=== PATIENT | male | born 1985 | race Caucasian/White ===

== ENCOUNTER 2020-10-27 20:31 | Emergency (ER) | payer SELFPAY ==
[2020-10-27 21:05] VITALS: BP 107/59; PULSE 106
[2020-10-27] MEDS ORDERED: Dexamethasone 10 MG/ML SDV IM ONE (21:11)
[2020-10-27] MEDS ORDERED: Diazepam 2 MG Tab PO ONE (21:11)
--- NOTE | 2020-10-27 21:16 | EDM.PDOC ---
ED HPI GENERAL MEDICAL PROBLEM - General Chief Complaint: Back Pain or Injury Stated Complaint: PAIN IN LOWER LFT SIDE Time Seen by Provider: 10/27/20 20:59 - History of Present Illness INITIAL COMMENTS - FREE TEXT/NARRATIVE: History of present illness: The patient has back pain for a week. It gets worse when he has been standing and then tries to lay down or change position. It comes and goes. Ibuprofen helped a little bit with the pain. Flexeril helped a little bit with the spasm. The pain is in the left flank just above the posterior iliac crest and radiates down the left posterior thigh. He has no loss of bowel or bladder control or sensation in the buttocks or lower extremities. He has no loss of motor function. He has a little bit of loose stool incidentally. There is no rash. He has no nausea and vomiting or systemic signs of illness. He did not do anything to hurt himself and he enjoys excellent health. [] Review of systems: As per history of present illness and below otherwise all systems reviewed and negative. Past medical history: As per history of present illness and as reviewed below otherwise noncontributory. Surgical history: As per history of present illness and as reviewed below otherwise noncontributory. Social history: No reported history of drug or alcohol abuse. Family history: As per history of present illness and as reviewed below otherwise noncontributory. Physical exam: Constitutional - well developed, well-nourished and in no acute distress HEENT - normocephalic, no evidence of trauma - external nose and mouth normal - no mass in neck and no JVD - mucosae moist EYES - full EOM, PERRL, no icterus - no evidence of inflammation, injection, or drainage Respiratory - no respiratory distress, equal bilateral expansion, lungs clear to auscultation and no abnormal lung sounds Cardiovascular - Regular Rhythm with S1 and S2 appreciated and no murmur, gallop or rub. GI - abdomen soft without distension or organomegaly - normal bowel sounds - no guard or rebound Musculoskeletal straight leg raise on the left causes pain down the posterior thigh and buttocks. There is tenderness in the left sciatic area. The spine itself is without deformity tenderness or crepitance. No gross deformity of long bones or joints - no tenderness, swelling or edema Neurologic - Alert and oriented times four - CN II-XII grossly intact - motor sensory and coordination symmetrically normal-DTR right equal left with lower extremities Psychiatric - appropriate mood and affect with normal thought content Hematologic - No petechiae or purpura - mucosa appropriate color and sclera not pale - normal nail bed color and refill Integument - no rash or evidence of trauma - normal turgor Diagnostics: [] Therapeutics: [] Impression: [] Plan: [] Definitive disposition and diagnosis as appropriate pending reevaluation and review of above. Left Lower Back Pain Score (Numeric/FACES): 3 - Related Data Allergies Allergy/AdvReac Type Severity Reaction Status Date / Time No Known Allergies Allergy Verified 10/27/20 20:57 Home Meds: Home Meds Orphenadrine [Norflex] 100 mg PO BID PRN #14 tab 10/27/20 [Rx] methylPREDNISolone [Medrol Dose Pack] 4 mg PO DAILY #21 tab 10/27/20 [Rx] Past Medical History - Past Health History Medical/Surgical History: Denies Medical/Surgical History - Infectious Disease History Infectious Disease History: Reports: Chicken Pox Social & Family History - Tobacco Use Tobacco Use Status *Q: Current Every Day Tobacco User Years of Tobacco use: 15 Packs/Tins Daily: 1 - Caffeine Use Caffeine Use: Reports: Coffee, Energy Drinks, Soda - Recreational Drug Use Recreational Drug Use: No ED ROS GENERAL - Review of Systems Review Of Systems: Comprehensive ROS is negative, except as noted in HPI. ED EXAM, GENERAL - Physical Exam Exam: See Below Free Text/Narrative:: My physical exam is in the HPI Course - Vital Signs Last Recorded V/S: Last Vital Signs Temp 36.9 C 10/27/20 20:58 Pulse 106 H 10/27/20 20:58 Resp 16 10/27/20 20:58 BP 107/59 L 10/27/20 20:58 Pulse Ox 97 10/27/20 20:58 - Orders/Labs/Meds Meds: Medications Discontinued Medications Generic Name Dose Route Start Last Admin Trade Name Freq PRN Reason Stop Dose Admin Dexamethasone 10 mg 10/27/20 21:11 Dexamethasone 10 Mg/Ml Sdv IM 10/27/20 21:12 ONETIME ONE Diazepam 5 mg 10/27/20 21:11 Diazepam 2 Mg Tab PO 10/27/20 21:12 ONETIME ONE Departure - Departure Time of Disposition: 21:13 Disposition: Home, Self-Care 01 Condition: Good Clinical Impression: Sciatica - Discharge Information Prescriptions: methylPREDNISolone [Medrol Dose Pack] 4 mg PO DAILY #21 tab Orphenadrine [Norflex] 100 mg PO BID PRN #14 tab PRN Reason: Muscle Spasm - Painful Instructions: Sciatica, [id number] Referrals: PCP,None [Primary Care Provider] - Additional Instructions: You must return immediately if you lose control of your bowel or bladder or lose sensation in your buttocks or legs or lose motion in your feet. That would mean a pinched nerve that is causing damage to the nerve itself. If ibuprofen did not give you very good relief then when you run out of the medicines that have been prescribed you should try naproxen. Different people respond differently to different anti-inflammatories. [facility] - Primary Care [address] [place] [id number] [place] [address] The following information is given to patients seen in the emergency department who are being discharged to home. This information is to outline your options for follow-up care. We provide all patients seen in our emergency department with a follow-up referral. The need for follow-up, as well as the timing and circumstances, are variable depending upon the specifics of your emergency department visit. If you don't have a primary care physician on staff, we will provide you with a referral. We always advise you to contact your personal physician following an emergency department visit to inform them of the circumstance of the visit and for follow-up with them and/or the need for any referrals to a consulting specialist. The emergency department will also refer you to a specialist when appropriate. This referral assures that you have the opportunity for follow-up care with a specialist. All of these measure are taken in an effort to provide you with optimal care, which includes your follow-up. Under all circumstances we always encourage you to contact your private physician who remains a resource for coordinating your care. When calling for follow-up care, please make the office aware that this follow-up is from your recent emergency room visit. If for any reason you are refused follow-up, please contact the [facility] Emergency Department at and asked to speak to the emergency department charge nurse. Sepsis Event Note (ED) - Evaluation Sepsis Screening Result: No Definite Risk - Focused Exam Vital Signs: Vital Signs Temp Pulse Resp BP Pulse Ox 10/27/20 20:58 36.9 C 106 H 16 107/59 L 97
== END 2020-10-27 21:28 | disposition home or self-care (01) ==
LOC: MW.ED 20:31
DX: M54.42 Lumbago with sciatica, left side (principal); Z72.0 Tobacco use
CPT/HCPCS: 96372; 99283; A9270; J1100

== ENCOUNTER 2021-12-30 17:25 | Emergency (ER) | payer SELFPAY ==
[2021-12-30 18:40] VITALS: BP 94/57; PULSE 83
== END 2021-12-30 21:25 | disposition home or self-care (01) ==
LOC: MW.ED 17:25
DX: K52.9 Noninfective gastroenteritis and colitis, unspecified (principal)
CPT/HCPCS: 36415; 80053; 83690; 85025; 99284

== ENCOUNTER 2023-09-08 12:07 | Emergency (ER) | payer SELFPAY ==
[2023-09-08] MEDS: traMADol 50 MG Tab PO STA (12:30)
[2023-09-08 13:57] VITALS: BP 114/78; PULSE 77
== END 2023-09-08 13:56 | disposition home or self-care (01) ==
LOC: MW.ED 12:07
DX: S62.001A Unspecified fracture of navicular [scaphoid] bone of right wrist, initial encounter for closed fracture (principal); Z75.8 Other problems related to medical facilities and other health care; Z79.899 Other long term (current) drug therapy; X58.XXXA Exposure to other specified factors, initial encounter
CPT/HCPCS: 29125; 73110; 73130; 99283; A9270